=== PATIENT | female | born 1985 | race Caucasian/White ===

== ENCOUNTER → 2016-07-31 | Outpatient (CLI) | payer SELFPAY ==
[~2016-07-31] VITALS: Ht 179.1 cm; Wt 122.2 kg
[~2016-07-31] MED LIST: ADIPEX-P37.5 MG PO; ADVIL200 MG PO; CELEXA 20MG20 MG/TAB PO; FERROUS SULFATE65 MG PO; FOLIC ACID0.4 MG PO; IRON INFUSION; LEXAPRO20 MG PO; MULTIPLE VITAMI1 TA1 PO; NEXIUM 40MG40 MG PO; PHENTERMINE15 MG PO; SINGULAIR 110 MG/TAB PO; SYNTHROID0.05 MG/TA PO; SYNTHROID0.1 MG/TAB PO; VITAMIN B-1000 MCG/T PO; WELLBUTRIN 100100 MG PO; WELLBUTRIN SR150 M1 PO; ZANTAC 150MG T150 MG PO; ZOLOFT 100MG100 MG PO; ZOLOFT 50MG50 MG PO
[2016-07-31 15:51] VITALS: BP 123/73; PULSE 68
[2016-07-31 16:32] VITALS: BP 123/73; PULSE 68
== END ==
LOC: LIGHT 05-22 10:06
DX: E03.8 Other specified hypothyroidism (principal); Z98.84 Bariatric surgery status; E16.1 Other hypoglycemia; E66.01 Morbid (severe) obesity due to excess calories; Z68.38 Body mass index [BMI] 38.0-38.9, adult